=== PATIENT | male | born 1970 | race Caucasian/White ===

== ENCOUNTER 2020-01-30 11:37 | Emergency (ER) | payer SELFPAY ==
[~2020-01-30] VITALS: Ht 182.9 cm; Wt 113.4 kg
[2020-01-30 11:38] VITALS: BP 145/87
--- NOTE | 2020-01-30 12:00 | NUR ---
49/M C/O OCCASIONAL SOB AND CHEST PRESSURE, DRY COUGH. MID CHEST PRESSURE AND SOB X 1 WEEK THAT IS PRECIPITATED BY TALKING AND LEANING FORWARD. PAIN 1/10 AT THIS TIME. DENIES FEVER, N/V, ABD PAIN. STATES MINIMAL WHEEZING. WAS RX ALBUTEROL INH 1 WEEK AGO AND USING WITH SOME RELIEF. STATES THIS CONSTELLATION OF SYMPTOMS IS IDENTICAL TO USUAL ASTHMA EXACERBATIONS, WHICH PT NORMALLY RECEIVES STERIOD AND BREATHING TX FOR. PT APPEARS NAD. VSS. PT WAS TOLD BY HIS DOCTOR TO "GO TO [facility] TO GET TESTED FOR COVID". PMH- HTN, ASTHMA, HIGH CHOLESTEROL, PT STATES "HEART BLOCKAGE"
--- NOTE | 2020-01-30 12:21 | NUR ---
PT REFUSED CXR. HE BELIEVED HE WAS JUST GETTING A COVID TEST HERE ONLY.
--- NOTE | 2020-01-30 12:30 | NUR ---
DR POLANCO EVALUATING PT AT BEDSIDE
--- NOTE | 2020-01-30 12:38 | NUR ---
Patient does not wish to proceed with medical care recommended by DR. POLANCO. Patient given information related to possible complications, up to and including , which could occur as a result of leaving hospital at this time. Patient verbalizes understanding of risks involved leaving against medical advice. Patient has signed AMA form.
== END 2020-01-30 12:38 | disposition left against medical advice (07) ==
LOC: MED 11:37 → EEVIPCON 11:37 → MED 12:38
DX: J45.909 Unspecified asthma, uncomplicated (principal); Z20.828 Contact with and (suspected) exposure to other viral communicable diseases
CPT/HCPCS: 99281

== ENCOUNTER 2020-05-06 14:29 | Emergency (ER) | payer SELFPAY ==
[~2020-05-06] VITALS: Ht 182.9 cm; Wt 112.0 kg
[2020-05-06 15:16] VITALS: BP 135/76
[2020-05-06 17:29] VITALS: BP 125/81
== END 2020-05-06 17:29 | disposition home or self-care (01) ==
LOC: MED 14:29
DX: H81.12 Benign paroxysmal vertigo, left ear (principal); I10 Essential (primary) hypertension; E11.9 Type 2 diabetes mellitus without complications; E78.00 Pure hypercholesterolemia, unspecified
CPT/HCPCS: 70450; 99284